=== PATIENT | male | born 1995 | race African-American/Black ===

== ENCOUNTER 2018-08-01 13:04 | Emergency (ER) | payer OTHER, MEDICAID ==
[~2018-08-01] VITALS: Ht 177.8 cm; Wt 59.0 kg
[2018-08-01 13:09] VITALS: BP 116/82
[2018-08-01] MEDS ORDERED: Ketorolac 30mg Inj IM ONE (13:45)
--- NOTE | 2018-08-01 13:58 | NUR ---
ED Nurse Note: PERSONALIZATION SPECIALIST WITH PT FOR XRAY OF KNEES.
[2018-08-01] MEDS ORDERED: NAPROXEN500 M2 ORAL (14:42)
--- NOTE | 2018-08-01 14:42 | Emergency Room Report ---
History of Present Illness General Chief Complaint: Pain Source: Patient Present Illness HPI 23-year-old male with 3 months history of knee pain here requesting x-ray to present to his primary care provider tomorrow. Patient had a different primary care physician had x-rays done and was diagnosed with some unknown sarcoma of the knee however was never given a referral to specialist. Patient is rating the pain especially in the left knee 10 out of 10 with radiation to shins. Denies tingling and numbness. 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 Has taken ibuprofen and Tylenol for pain relief with minimal relief. Denies all other injuries, chest pain, palpitation, weight loss, night sweats, abdominal pain, headache, and all other associated symptoms. Allergies: Coded Allergies: No Known Allergies (Unverified , 08/01/18) Patient History Past Medical History: see triage record Past Surgical History: unable to obtain Pertinent Family History: none Immunizations: UTD Reviewed Nursing Documentation: PMH: Agreed; PSxH: Agreed Nursing Documentation-PMH Past Medical History: No Stated History Review of Systems All Other Systems: negative except mentioned in HPI Physical Exam Vital Signs Date Time Temp Pulse Resp B/P (MAP) Pulse Ox O2 Delivery O2 Flow Rate FiO2 08/01/18 13:09 98.1 65 17 116/82 (93) 99 Room Air Sp02 EP Interpretation: reviewed, normal General Appearance: normal inspection, well appearing, no apparent distress, alert Head: normocephalic, atraumatic Eyes: bilateral eye normal inspection, bilateral eye PERRL ENT: normal ENT inspection, hearing grossly normal Neck: normal inspection, full range of motion, supple Respiratory: normal inspection, chest non-tender, lungs clear, normal breath sounds, no rhonchi Cardiovascular #1: normal inspection, regular rate, rhythm, no murmur, normal capillary refill Cardiovascular #2: 2+ dorsalis pedis (R), 2+ dorsalis pedis (L) Gastrointestinal: normal inspection, non tender Genitourinary: no CVA tenderness Musculoskeletal: back normal, digits/nails normal, non-tender, no calf tenderness, pelvis stable Neurologic: normal inspection, alert, oriented x3, responsive Psychiatric: normal inspection, judgement/insight normal Skin: normal inspection, normal color, no rash Lymphatic: normal inspection, no adenopathy Medical Decision Making PA Attestation All my diagnosis and treatment plans were reviewed ad discussed with my supervising physician Dr. Lam Diagnostic Impression: Primary Impression: Chronic pain of both knees ER Course 23-year-old male with 3 months history of knee pain here requesting x-ray to present to his primary care provider tomorrow. Patient had a different primary care physician had x-rays done and was diagnosed with some unknown sarcoma of the knee however was never given a referral to specialist. Patient is rating the pain especially in the left knee 10 out of 10 with radiation to shins. Denies tingling and numbness. 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 Has taken ibuprofen and Tylenol for pain relief with minimal relief. Denies all other injuries, chest pain, palpitation, weight loss, night sweats, abdominal pain, headache, and all other associated symptoms. Ddx considered but are not limited to: Knee sprain, knee strain, knee fracture, osteosarcoma Vital signs: are WNL, pt. is afebrile H&PE are most consistent with: Chronic knee pain bilateral ORDERS: Bilateral knee x-ray, Toradol 30 mg IM, naproxen ED INTERVENTIONS: Toradol 30 mg IM DISCHARGE: At this time pt. is stable for d/c to home. Will provide printed patient care instructions, and any necessary prescriptions. Care plan and follow up instructions have been discussed with the patient prior to discharge. See primary doctor for follow-up further imaging avoid strenuous physical activity alternate icing and heating Other X-Ray Diagnostic Results Other X-Ray Diagnostic Results #1: X-Ray ordered: left knee # of Views/Limited Vs Complete: 2 View Indication: Pain PA Xray: Interpretation reviewed, by supervising MD, and agrees with findings. Interpretation: no dislocation, no soft tissue swelling, no fractures Impression: No acute disease Electronically Signed by: prerna wilson PA-C Other X-Ray Diagnostic Results #2: X-Ray ordered: right knee # of Views/Limited Vs Complete: 2 View Indication: Pain EP Interpretation: Yes PA Xray: Interpretation reviewed, by supervising MD, and agrees with findings. Interpretation: no dislocation, no soft tissue swelling, no fractures Impression: No acute disease Electronically Signed by: prerna wilson PA-C Last Vital Signs Date Time Temp Pulse Resp B/P (MAP) Pulse Ox O2 Delivery O2 Flow Rate FiO2 08/01/18 13:09 98.1 65 17 116/82 99 Room Air Disposition: HOME, SELF-CARE Condition: Stable Scripts Naproxen* (NAPROXEN*) 500 Mg Tablet 500 MG ORAL TWICE A DAY, #20 TAB Prov: Prerna Duffy 08/01/18 Referrals: NON PHYSICIAN (PCP) Patient Instructions: Knee Pain, [id number] Additional Instructions: Follow-up with your primary care provider for further assessment of chronic knee pain further imaging may be needed and avoid strenuous physical activity Prerna Duffy Aug 01, 2018 14:42
[2018-08-01 14:47] VITALS: BP 121/80
--- NOTE | 2018-08-01 14:47 | NUR ---
ER DISCHARGE NOTE: Pt was seen due to bilateral knee pain. Patient is cleared to be discharged per PA, pt is aox4, on room air, with stable vital signs. pt was given dc and prescription instructions, pt was able to verbalize understanding, pt id band removed. pt is able to ambulate with steady gait. pt took all belongings.
--- NOTE | 2018-08-02 13:23 | Diagnostic Imaging Report ---
Indication: Knee pain. History of tumor Technique: 3 views of the left knee Comparison: None Findings: No acute fractures. No dislocations. The joint spaces are preserved. The proximal tibia demonstrates a reticulated sclerotic area Impression: No acute bony trauma Reticulated sclerotic area in the upper tibia, incompletely visualized, appearance somewhat suggestive of a bone infarct or an enchondroma. Dedicated tibiofibular these may be useful to better assess This agrees with the preliminary interpretation provided overnight by [facility].
--- NOTE | 2018-08-02 13:24 | Diagnostic Imaging Report ---
Indication: Right knee pain, history of bone tumor Technique: 3 views of the right knee Comparison: None Findings: No suprapatellar effusion. No acute fractures. No dislocations. The joint spaces are preserved Impression: Negative This agrees with the preliminary interpretation provided overnight by [facility].
== END 2018-08-01 14:47 | disposition home or self-care (01) ==
LOC: EMR 13:31
DX: M25.562 Pain in left knee (principal); M25.561 Pain in right knee; G89.29 Other chronic pain
CPT/HCPCS: 73562; 96372; 99284; J1885

== ENCOUNTER 2018-10-08 11:33 | Emergency (ER) | payer OTHER, MEDICAID ==
[~2018-10-08] VITALS: Ht 177.8 cm; Wt 59.0 kg
[~2018-10-08 11:33] MED LIST: NAPROXEN500 M2 ORAL
--- NOTE | 2018-10-08 13:31 | Emergency Room Report ---
History of Present Illness General Chief Complaint: Sore Throat Source: Patient Present Illness HPI 23-year-old male presents to the emergency department complaining of 8 out of 10 severity sore throat progressive x3 days he denies fevers or chills he reports pain is exacerbated upon swallowing he reports tenderness to the bilateral sides of his neck and swollen tender lymph nodes. Patient denies tonsillar swelling or exudates but he states that he feels as though his throat is swollen when he attempts to swallow. Swelling of the lips or tongue denies rashes denies recent travel or ill contacts with similar symptoms. Denies changes in his voice. No other relieving factors at this time. Allergies: Coded Allergies: No Known Allergies (Unverified , 08/01/18) Patient History Past Medical History: see triage record Past Surgical History: none Pertinent Family History: none Reviewed Nursing Documentation: PMH: Agreed; PSxH: Agreed Nursing Documentation-PM Past Medical History: No History, Except For Hx Asthma: Yes Review of Systems All Other Systems: negative except mentioned in HPI Physical Exam Vital Signs Date Time Temp Pulse Resp B/P (MAP) Pulse Ox O2 Delivery O2 Flow Rate FiO2 10/08/18 12:16 98.1 76 17 125/84 (98) 99 Room Air Sp02 EP Interpretation: reviewed, normal General Appearance: no apparent distress, alert, GCS 15, non-toxic Head: normocephalic, atraumatic Eyes: bilateral eye normal inspection, bilateral eye PERRL ENT: hearing grossly normal, normal voice, TMs + canals normal, uvula midline, moist mucus membranes, pharyngeal erythema, other - NO tonsillar swelling, no exudates. Neck: full range of motion, no meningismus, no bony tend Respiratory: chest non-tender, lungs clear, normal breath sounds, speaking full sentences Cardiovascular #1: regular rate, rhythm Musculoskeletal: back normal, gait/station normal, normal range of motion, non- tender Neurologic: alert, oriented x3, responsive, motor strength/tone normal, sensory intact, speech normal, grossly normal Psychiatric: judgement/insight normal Lymphatic: other - anterior cervical lad bilaterally. Medical Decision Making PA Attestation Dr. Perdomo Is my supervising Physician whom patient management has been discussed with. Diagnostic Impression: Primary Impression: Acute viral pharyngitis ER Course 23-year-old male presents to the emergency department complaining of 8 out of 10 severity sore throat progressive x3 days he denies fevers or chills he reports pain is exacerbated upon swallowing he reports tenderness to the bilateral sides of his neck and swollen tender lymph nodes. Patient denies tonsillar swelling or exudates but he states that he feels as though his throat is swollen when he attempts to swallow. Swelling of the lips or tongue denies rashes denies recent travel or ill contacts with similar symptoms. Denies changes in his voice. No other relieving factors at this time. Ddx considered but are not limited to: pharyngitis, strep, TICKET SORTER, ludwigs angina, URI Vital signs: are WNL, pt. is afebrile H&PE are most consistent with: pharyngitis presumed to be viral in etiology will refrain from antibiotics at this time. Does not meet [facility] criteria. ORDERS: None required at this time as the diagnosis is clinical ED INTERVENTIONS: -Decadron IM 8mg -IBu 600mg DISCHARGE: At this time pt. is stable for d/c to home. Will provide printed patient care instructions, and any necessary prescriptions. Care plan and follow up instructions have been discussed with the patient prior to discharge. Last Vital Signs Date Time Temp Pulse Resp B/P (MAP) Pulse Ox O2 Delivery O2 Flow Rate FiO2 10/08/18 12:16 98.1 76 17 125/84 (98) 99 Room Air Disposition: HOME, SELF-CARE Condition: Stable Scripts Naproxen* (NAPROXEN*) 500 Mg Tablet 500 MG ORAL TWICE A WEEK for 10 Days, #20 TAB 0 Refills Prov: Vinita Padilla 10/08/18 Lidocaine HCl 2% Viscous (Lidocaine HCl 2% Viscous) 100 Ml Solution 15 ML ORAL QID for sore throat, #220 ML Prov: Vinita Padilla 10/08/18 Referrals: [facility] (PCP) Patient Instructions: Sore Throat Additional Instructions: Take medications as directed. Follow up with a Primary Care Provider in 3-5 days, even if your symptoms have resolved. --Please review list of primary care clinics, if you do not already have a primary care provider Return sooner to ED if new symptoms occur, or current symptoms become worse. - Please note that this Emergency Department Report was dictated using [employer] tape [employer] technology software, occasionally this can lead to erroneous entry secondary to interpretation by the dictation equipment. Vinita Padilla Oct 08, 2018 13:31
[2018-10-08] MEDS ORDERED: NAPROXEN500 M2 ORAL (13:33)
[2018-10-08] MEDS ORDERED: LIDOCAINE VISC100 ML ORAL (13:33)
[2018-10-08] MEDS ORDERED: Dexamethasone 4mg/ml vial IM ONE (13:45)
--- NOTE | 2018-10-08 13:50 | NUR ---
ER DISCHARGE NOTE: Patient is cleared to be discharged per ERMD, pt is aox4, on room air, with stable vital signs. pt was given dc and prescription instructions, pt was able to verbalize understanding. pt is able to ambulate with steady gait. pt took all belongings.
[2018-10-08 14:08] VITALS: BP 125/84
[2018-10-08 14:09] VITALS: BP 125/84
== END 2018-10-08 14:11 | disposition home or self-care (01) ==
LOC: EMR 12:55
DX: J02.9 Acute pharyngitis, unspecified (principal); B97.89 Other viral agents as the cause of diseases classified elsewhere; J45.909 Unspecified asthma, uncomplicated
CPT/HCPCS: 96372; 99283; J1100

== ENCOUNTER 2019-11-20 21:28 | Emergency (ER) | payer MEDICAID, OTHER ==
[~2019-11-20] VITALS: Ht 175.3 cm; Wt 59.0 kg
[~2019-11-20 21:28] MED LIST changes: +LIDOCAINE VISC100 ML ORAL
[2019-11-20 21:40] VITALS: BP 137/75
[2019-11-20] MEDS ORDERED: HYDROcodone/Acetamin 5/325 tab ORAL ONE (21:45)
[2019-11-20] MEDS ORDERED: Tetanus/Diptheria/Pertussis IM ONE (21:45)
--- NOTE | 2019-11-20 22:43 | Emergency Room Report ---
History of Present Illness General Chief Complaint: Multiple Trauma/Fall Source: Patient Present Illness HPI 24M no PMHx c/o diffuse R body pain after falling off a skateboard prior to arrival. Pt was not wearing a helmet but did not hit his head or lose consciousness. Denies vision changes, [place], LOC, neck pain, midline back pain, chest pain, shortness of breath, nausea, vomiting, diarrhea. He does endorse right shoulder pain, right hand pain, right hip pain, and right ankle pain. He was ambulatory after the event. He remembers the entire episode. The patient's symptoms were gradual onset, severity was mild, duration since 1 day. Does not recall last Tdap. Quality: aching Past medical history: Denies Past surgical history: Denies Smoking: Denies Alcohol use: Denies Drug use: Denies Review of systems: CONST: No fevers or chills, No night sweats PULMONARY: No productive cough, No shortness of breath CARDIAC: No chest pain, No palpitations GI: No vomiting, No diarrhea , No melena_or_BRBPR : No dysuria, No hematuria, No discharge NEURO: No new_focal_weakness_or_numbness, No confusion, No vision changes 14 point Review of Systems is otherwise negative except per HPI Physical Exam: GENERAL: Awake_alert_ nontoxic, no acute distress Spo2 98% on RA -normal EYES: Extraocular muscles are intact. Conjunctivae clear. Lids without swelling ENT: External nose and ear normal_in_appearance. Oropharynx clear. H ead_atraumatic, Moist_oral_mucosa NECK: No JVD. No meningismus. No thyromegaly. Supple. Trachea midline. No midline cervical, thoracic, lumbar spinal step-offs. RESP: Normal respiratory effort. Symmetric rise. No stridor. Clear_to_auscultation_No_rales_No_wheezes No chest wall crepitus CARDIAC: Regular rate and regular rhytm. No_significant pedal edema. ABDOMEN: Soft. Nondistended. Nontender_No_rebound_or_guarding. No pelvic instability R hip abrasion. No deformity. MSK: Normal muscle tone, without rigidity. Extremities without asymmetric deformity or swelling. SKIN: Warm and dry. No visible cyanosis or pallor NEUROLOGIC: Alert, oriented x3. Motor_and_sensation_grossly_intact. No truncal ataxia. Gait_normal Psych: Normal mood and affect, normal judgment and insight - COORDINATION OF CARE Case was discussed with: Patient Any imaging ordered were interpreted as part of the medical decision making: Medical Decision Making/Plan: DDx: Bone contusion versus musculoskeletal strain versus fracture versus dislocation Patient is well-appearing. Neurovascular intact. No focal neurologic deficits. He has no tenderness to palpation of the axial spine. Patient is noted to have abrasion to the right hip however there is no pelvic in stability. Plain film x-rays of the right side of the body were performed. Tdap was updated. [place] given for pain control. Care signed out to Dr Lam pending xrays. Allergies: Coded Allergies: No Known Allergies (Unverified , 08/01/18) COVID-19 Screening Contact w/high risk pt: No Experienced COVID-19 symptoms?: No COVID-19 Testing performed [employer] SUPERVISOR: No Nursing Documentation-PMH Hx Asthma: Yes Physical Exam Vital Signs Date Time Temp Pulse Resp B/P (MAP) Pulse Ox O2 Delivery O2 Flow Rate FiO2 11/20/19 21:33 97.9 66 15 137/75 (95) 97 Room Air Sp02 EP Interpretation: reviewed, normal Medical Decision Making Diagnostic Impression: Primary Impression: Abrasion of right hip Additional Impressions: Right shoulder pain Right ankle pain Right hip pain Last Vital Signs Date Time Temp Pulse Resp B/P (MAP) Pulse Ox O2 Delivery O2 Flow Rate FiO2 11/20/19 21:40 97.9 15 137/75 97 Room Air 11/20/19 21:40 66 Admit Decision Time: 22:38 Condition: Stable - ERASED Scripts Ibuprofen* (MOTRIN*) 600 Mg Tablet 600 MG ORAL Q8H PRN for FOR PAIN, #30 TAB 0 Refills Prov: Jeffery Lam MD 11/21/19 Referrals: NON PHYSICIAN (PCP) Yuly Meng D.O. Nov 20, 2019 22:43
--- NOTE | 2019-11-20 23:24 | Diagnostic Imaging Report ---
EXAM: XR Right Ankle Complete, 3 or More Views CLINICAL HISTORY: PAIN TECHNIQUE: Frontal, lateral and oblique views of the right ankle. COMPARISON: No relevant prior studies available. FINDINGS: Bones/joints: Unremarkable. No acute fracture. No dislocation. Soft tissues: Unremarkable. IMPRESSION: No acute fracture.
--- NOTE | 2019-11-20 23:25 | Diagnostic Imaging Report ---
EXAM: XR Right Femur, 2 Views CLINICAL HISTORY: PAIN TECHNIQUE: Frontal and lateral views of the right femur. COMPARISON: No relevant prior studies available. FINDINGS: Bones/joints: Unremarkable. No acute fracture. No dislocation. Soft tissues: Unremarkable. IMPRESSION: Normal right femur x-rays.
--- NOTE | 2019-11-20 23:27 | Diagnostic Imaging Report ---
EXAM: XR Right Wrist Complete, 3 or More Views CLINICAL HISTORY: PAIN TECHNIQUE: Frontal, lateral and oblique views of the right wrist. COMPARISON: No relevant prior studies available. FINDINGS: Bones/joints: Unremarkable. No acute fracture. No dislocation. Soft tissues: Unremarkable. No radiopaque foreign body. IMPRESSION: No acute fracture.
--- NOTE | 2019-11-20 23:31 | Diagnostic Imaging Report ---
EXAM: XR Right Humerus, 2 or More Views CLINICAL HISTORY: PAIN TECHNIQUE: Frontal and lateral views of the right humerus. COMPARISON: No relevant prior studies available. FINDINGS: Bones/joints: Unremarkable. No acute fracture. No dislocation. Soft tissues: Unremarkable. IMPRESSION: No acute bony or traumatic abnormality.
--- NOTE | 2019-11-20 23:42 | Diagnostic Imaging Report ---
EXAM: XR Right Forearm, 2 Views CLINICAL HISTORY: PAIN TECHNIQUE: Frontal and lateral views of the right forearm. COMPARISON: No relevant prior studies available. FINDINGS: Bones/joints: Unremarkable. No acute fracture. No dislocation. Soft tissues: Unremarkable. IMPRESSION: Normal right forearm x-rays.
[2019-11-21] MEDS ORDERED: IBUPROFEN600 M1 ORAL (00:02)
[2019-11-21 00:05] VITALS: BP 128/70
--- NOTE | 2019-11-21 01:45 | Emergency Room Report ---
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 Nursing Documentation-PMH Hx Asthma: Yes Physical Exam Vital Signs Date Time Temp Pulse Resp B/P (MAP) Pulse Ox O2 Delivery O2 Flow Rate FiO2 11/20/19 21:33 97.9 66 15 137/75 (95) 97 Room Air Procedures Splinting Splinting : Consent: Verbal Pre-Made Type: ARVIND wrap Splint: thumb spica Pre-Proc Neuro Vasc Exam: normal Post-Proc Neuro Vasc Exam: normal Patient Tolerated: Well Complications: None Medical Decision Making Diagnostic Impression: Primary Impression: Wrist sprain Qualified Codes: S63.501A - Unspecified sprain of right wrist, initial encounter Additional Impression: Ankle sprain Qualified Codes: S93.401A - Sprain of unspecified ligament of right ankle, initial encounter ER Course Hospital Course 24 yo M presents with R sided arm and leg pain s/p fall Patient initially seen and evaluated by Dr Meng; please see her note for full history and physical Clinical course Patient signed out to me pending x-ray results. All x-rays were negative for acute fracture. I discussed findings with patient. Placed in thumb spica splint and Arvind wrap with crutches for right ankle. Safe for discharge with close outpatient follow-up. I will provide referrals Diagnosis - wrist sprain, ankle sprain Stable and discharged to home with prescription for Motrin. apply ice, keep elevated. weight bear as tolerated. Followup with PMD. Return to ED if symptoms recur or worsen Other X-Ray Diagnostic Results Other X-Ray Diagnostic Results #1: X-Ray ordered: R humerus # of Views/Limited Vs Complete: 1 View Indication: Pain EP Interpretation: Yes Interpretation: no dislocation, no soft tissue swelling, no fractures Impression: No acute disease Electronically Signed by: Electronically signed by Jeffery Lam MD Other X-Ray Diagnostic Results #2: X-Ray ordered: R forearm # of Views/Limited Vs Complete: 2 View Indication: Pain EP Interpretation: Yes Interpretation: no dislocation, no soft tissue swelling, no fractures Impression: No acute disease Electronically Signed by: Electronically signed by Jeffery Lam MD Other X-Ray Diagnostic Results #3: X-Ray ordered: R wrist # of Views/Limited Vs Complete: 3 View Indication: Pain EP Interpretation: Yes Interpretation: no dislocation, no soft tissue swelling, no fractures Impression: No acute disease Electronically Signed by: Electronically signed by Jeffery Lam MD Other X-Ray Diagnostic Results #4: X-Ray ordered: R femur # of Views/Limited Vs Complete: 3 View Indication: Pain EP Interpretation: Yes Interpretation: no dislocation, no soft tissue swelling, no fractures Impression: No acute disease Electronically Signed by: Electronically signed by Jeffery Lam MD Other X-Ray Diagnostic Results #5: X-Ray ordered: R ankle # of Views/Limited Vs Complete: 3 View Indication: Pain EP Interpretation: Yes Interpretation: no dislocation, no soft tissue swelling, no fractures Impression: No acute disease Electronically Signed by: Electronically signed by Jeffery Lam MD Last Vital Signs Date Time Temp Pulse Resp B/P (MAP) Pulse Ox O2 Delivery O2 Flow Rate FiO2 11/21/19 00:05 97.9 72 16 128/70 98 Room Air Status: improved Disposition: HOME, SELF-CARE Condition: Stable Scripts Ibuprofen* (MOTRIN*) 600 Mg Tablet 600 MG ORAL Q8H PRN for FOR PAIN, #30 TAB 0 Refills Prov: Jeffery Lam MD 11/21/19 Referrals: NON PHYSICIAN (PCP) [facility] 24 hour /7 days a week by Appointment Only [address] [address] Departure Forms: Return to Work Return to Work Date: Nov 24, 2019 Work Restrictions: No Prolonged Standing Patient Instructions: Wrist Sprain With [facility] Jeffery Lam MD Nov 21, 2019 01:45
== END 2019-11-21 00:05 | disposition home or self-care (01) ==
LOC: EMR 22:00
DX: S63.501A Unspecified sprain of right wrist, initial encounter (principal); S93.401A Sprain of unspecified ligament of right ankle, initial encounter; S70.211A Abrasion, right hip, initial encounter; M25.511 Pain in right shoulder; V00.131A Fall from skateboard, initial encounter; Y92.9 Unspecified place or not applicable
CPT/HCPCS: 73060; 73090; 73110; 73552; 73610; 90471; 90715; Z7502; 99284